=== PATIENT | female | born 1975 | race Caucasian/White ===

== ENCOUNTER 2017-10-13 09:25 | Day surgery (SDC) | payer BC, MEDICARE ==
[~2017-10-13 09:25] MED LIST: ACETAMINOPHEN 1,000 MG/100 ML BTL IV ONE; FAMOTIDINE 20MG TABLET PO ONE; METOCLOPRAMIDE 10 MG TABLET PO ONE; VANCOMYCIN HCL 1,000 MG in DEXTROSE 5 % IN WATER 250 ML IVPB ONE
[2017-10-13] MEDS ORDERED: HYDROMORPHONE HCL 2 MG/ML VIAL IV ONE (09:26)
[2017-10-13] MEDS ORDERED: PROPOFOL 10 MG/ML VIAL IV ONE (09:26)
[2017-10-13] MEDS ORDERED: *PACU ONLY* KETAMINE HCL 10 MG/ML (20ML) VIAL IV ONE (09:26)
[2017-10-13] MEDS ORDERED: SEVOFLURANE 250 ML INH ONE (09:26)
[2017-10-13] MEDS ORDERED: MORPHINE SULFATE PF 10MG/10ML VIAL IV ONE (09:26)
[2017-10-13] MEDS ORDERED: ENOXAPARIN 40 MG/0.4 ML SYR SQ ONE (09:26)
[2017-10-13] MEDS ORDERED: CLINDAMYCIN PHOS/D5W 900MG 900 MG/50 ML BAG IVPB ONE (09:26)
--- NOTE | 2017-10-14 09:16 | Operative Note ---
DATE: 10/13/17 PREOPERATIVE DIAGNOSIS: ACL DEFICIENT LEFT KNEE. POSTOPERATIVE DIAGNOSES: ACL DEFICIENT LEFT KNEE. PROCEDURE: 1. LEFT KNEE ANTERIOR CRUCIATE LIGAMENT RECONSTRUCTION WITH A BONE-PATELLAR TENDON-BONE AUTOGRAFT. 2 BONE-PATELLAR TENDON-BONE AUTOGRAFT PROCUREMENT. STAFF SURGEON: COLTON FONSECA M.D. ANESTHESIA: GENERAL. PREPARATION: CHLORAPREP. INDIVIDUAL CONSIDERATIONS: NONE. PROCEDURE: The patient was taken to the Operating Room and placed supine on the operating table. She had a successful induction of a general anesthetic. Her left lower extremity was prepped and draped in the usual fashion. The patient had superior medial inflow cannula placed. The skin was infiltrated with 0.50% Marcaine with Epinephrine prior. A stab wound was made and the inflow cannula was placed. The knee was inflated with normal saline. It should be noted that examination under anesthesia showed increased excursion of Edel 's and about 1+ pivot shift. An inferior medial and an inferior lateral portal were made in a similar fashion. The arthroscope was introduced through the inferior lateral portal up into the pouch. The patient had some grade 3 changes of the patella, which looked old, normal tracking, moderate synovitis. Medial compartment was essentially normal. Some soft change but the meniscus was intact. In the notch, the ACL was basically plastered onto the PCL. The PCL was intact. The lateral compartment structures were essentially normal. Using a motorized jayant and a shaver, I debrided out the ACL remnant stump and then did a generous notchplasty with the motorized jayant. After this was done, the arthroscopy instrument was removed and the joint was irrigated out. The patient had a midline approach to the patella, patellar tendon, and tibial tubercle. The skin was again infiltrated with 0.5% Marcaine with Epinephrine prior. Sharp dissection carried down through skin and subcutaneous tissues. Small veins were coagulated with a Bovie. The paratenon was opened along the entire length. The patient had a wide patella measuring about 32 mm, so I elected to use a 10 mm graft knife. Using the graft knife and an oscillating saw , bony blocks of roughly 10 x 20-25 mm were obtained from the patella and tibial tubercle. The graft was then smoothed and fashioned and placed through a 10 mm sizer. Drill holes were placed. #5 Ethibond were placed through each end. This was then wrapped in a Betadine-soaked sponge and the placed off to the side. The patient had about a 4 cm wound over the iliotibial band distally and laterally. Again, the skin was infiltrated with 0.5% Marcaine with Epinephrine prior. Sharp dissection carried down through the skin and subcutaneous tissue. Dissection carried through the iliotibial band laterally and the vastus was brought anteriorly at the level of the intermuscular septum. Small vessels were coagulated with a Bovie. The scope was placed into the inferior medial portal. The rear-entry guide passer was placed through the inferior lateral portal, through the notch, and out through the lateral wound. The rear-entry guide was hooked onto this and it was brought into the knee. The 1 o'clock position was chosen far posteriorly and a guidepin was drilled across from outside in. A 10 mm tunnel was then drilled using the 10 mm reamer. In a similar fashion, a 10 mm tunnel was placed through the central footprint of the ACL on the tibia using the tibial aimer from an outside in technique also. A shaver was introduced and the soft tissue was debrided around the tibial tunnel base to prevent formation of a cyclops lesion. A Pomfret smoother passer was placed through the knee. There was excellent isometry, full extension and flexion moved it less than 1 mm. The graft was hooked onto this and brought through the knee and tensioned. It was secured with 9 mm interference screws on either side. I checked the graft for impingement in the notch and it was free. The preoperative Edel's and pivot were now gone. I thoroughly irrigated out the joint with saline. All other wounds were irrigated out with Betadine and saline. In the anterior wound, after letting the tourniquet down, hemostasis was obtained with a Bovie. Total tourniquet time was 90 minutes. We went ahead and closed the patellar tendon with multiple running #1 Vicryl, subcu and paratenon was closed with 2-0 Plus Vicryl. I used reamings to graft the patellar defect. In the lateral wound, the iliotibial band was closed with a running #1 Vicryl, subcu closed with 2-0 Plus Vicryl, and all skin wounds were closed with carmita. 20 mL of 0.25% plain Marcaine along with 10 mg of Morphine were injected into the knee and a sterile Bulkee compressive dressing was applied. The patient tolerated the procedures well. Needle and sponge counts were correct. Estimated blood loss was minimal and she was taken back to Recovery in good condition. There were no complications. JOB NUMBER: [id number] MTDD
== END 2017-10-13 16:25 | disposition home or self-care (01) ==
LOC: SUR 09:25
PROVIDERS: ATTEND Orthopaedic Surgery
DX: S83.32XA Tear of articular cartilage of left knee, current, initial encounter (principal); L27.1 Localized skin eruption due to drugs and medicaments taken internally; T36.8X5A Adverse effect of other systemic antibiotics, initial encounter; Y92.238 Other place in hospital as the place of occurrence of the external cause
CPT/HCPCS: 29888; 01400; J3370; J1170; J3490; J1650; J7060